=== PATIENT | male | born 1995 | race Caucasian/White ===

== ENCOUNTER 2022-03-30 09:32 | Day surgery (SDC) | payer MEDICAID ==
[~2022-03-30] VITALS: Ht 167.6 cm; Wt 60.3 kg
[2022-03-30] MEDS ORDERED: fentaNYL citrate 0.05 MG/ML VIAL ONE (11:53)
[2022-03-30] MEDS ORDERED: MIDAZOLAM 5 MG/5 ML VIAL ONE (11:53)
[2022-03-30] MEDS ORDERED: fentaNYL citrate 0.05 MG/ML VIAL IVP ONE (14:25)
[2022-03-30] MEDS ORDERED: MIDAZOLAM 2 MG/2 ML VIAL IVP ONE (14:25)
== END 2022-03-30 13:45 | disposition home or self-care (01) ==
LOC: MOR 09:32 → MMU 10:25 → MOR 13:45
PROVIDERS: ATTEND Internal Medicine Gastroenterology
DX: R19.7 Diarrhea, unspecified (principal); R13.10 Dysphagia, unspecified; R94.5 Abnormal results of liver function studies; Z20.822 Contact with and (suspected) exposure to COVID-19; Z79.899 Other long term (current) drug therapy
CPT/HCPCS: 43235; 45331; 87426; J2250; J3010; 45330